=== PATIENT | female | born 1940 | race Caucasian/White ===

== ENCOUNTER 2018-01-16 10:50 | Day surgery (SDC) | payer OTHER ==
[~2018-01-16] VITALS: Ht 157.5 cm; Wt 70.8 kg
[~2018-01-16 10:50] MED LIST: ALBU90OI INH; ASPI81CH PO; ATORVASTATIN CA10 MG PO; ATORVASTATIN CA40 MG PO; CARV6.25 PO; CLOP75 PO; Carvedilol12.5 MG PO; DIAZ5 PO; DIGO.25 PO; DIGOXIN0.125 MG/2 PO; ELIQUIS2.5 MG PO; HYDR1TAB94 PO; LOVA40; OMEPRAZOLE MAGN20 MG PO; Propranolol HCl80 MG PO; Ventolin5 MG/1 ML NEB; Verapamil HCl180 M1 PO
[2018-01-17 04:00] LABS: BASOPHILS ABSOLUTE AUTO 0.03 K/mm3 (0.00-0.23); BASOPHILS PERCENT AUTO 1 % (0-2); EOSINOPHILS ABSOLUTE AUTO 0.13 K/mm3 (0.00-0.68); EOSINOPHILS PERCENT AUTO 2 % (0-6); Hemoglobin 9.9 g/dL (11.5-16.0); IMMATURE GRAN ABSOLUTE AUTO 0.02 K/mm3 (0.00-0.10); IMMATURE GRAN PERCENT AUTO 0 % (0-1); LYMPHOCYTES ABSOLUTE AUTO 1.64 K/mm3 (0.84-5.20); LYMPHOCYTES PERCENT AUTO 25 % (21-46); MONOCYTES PERCENT AUTO 9 % (4-13); Mean Corpuscular HGB 27.3 pg (26.0-34.0); Mean Corpuscular HGB Conc 30.9 g/dL (31.5-36.5); Mean Corpuscular Volume 88 fL (80-100); Mean Platelet Volume 10.7 fL (9.1-12.4); NEUTROPHILS ABSOLUTE AUTO 4.21 K/mm3 (1.96-9.15); NEUTROPHILS PERCENT AUTO 64 % (41-73); Platelet Count 152 K/mm3 (150-400); RDW Coefficient Variation 15.4 % (11.7-14.2); RDW Standard Deviation 50.6 fL (35.1-46.3); Red Blood Cell Count 3.63 M/mm3 (3.80-5.20); White Blood Cell Count 6.63 K/mm3 (4.00-11.30)
[2018-01-17 04:27] LABS: Bun/Creatinine Ratio 10.6 (12.0-20.0); Calcium, Blood 8.2 mg/dL (8.5-10.1); Creatinine, Blood 1.04 mg/dL (0.40-1.00); Magnesium, Blood 1.9 mg/dL (1.6-2.4); Potassium, Blood 3.9 mmol/L (3.5-5.5)
[2018-01-17] MEDS ORDERED: ELIQUIS5 MG PO (13:36)
[2018-01-17] MEDS ORDERED: Percocet 5-3251 EACH PO (14:57)
== END 2018-01-17 15:45 | disposition home or self-care (01) ==
LOC: PRE IP 10:50 → SURS 10:50 → ORSCMMR 10:50 → SURS 12:49 → PRE IP 15:00 → EDSTATUS 15:00 → ORSCMMR 01-17 15:45 → SURS 01-17 15:45
PROVIDERS: Orthopaedic Surgery
PROC: 0SRD0J9 Replacement of Left Knee Joint with Synthetic Substitute, Cemented, Open Approach (ICD-10-PCS; principal; 2018-01-16 15:00)
DX: M17.12 Unilateral primary osteoarthritis, left knee (principal); I10 Essential (primary) hypertension; I48.0 Paroxysmal atrial fibrillation; Z79.01 Long term (current) use of anticoagulants; Z79.82 Long term (current) use of aspirin; J44.9 Chronic obstructive pulmonary disease, unspecified; Z86.73 Personal history of transient ischemic attack (TIA), and cerebral infarction without residual deficits; Z79.899 Other long term (current) drug therapy; Z87.891 Personal history of nicotine dependence
CPT/HCPCS: 36415; 70450; 73560-LT; 80048; 83735; 85025; 86850; 86900; 86901; 88300; 94760; 97110; 97116; 97162; 97530; C1713; C1776; G8978; G8979; J0171; J0690; J0735; J1885; J2370; J2405; J2795; J3370; J7030; J7120; Q0163

== ENCOUNTER 2018-12-19 09:24 | Emergency (ER) | payer OTHER ==
[~2018-12-19] VITALS: Ht 160 cm; Wt 65.3 kg
[~2018-12-19 09:24] MED LIST changes: +ELIQUIS5 MG PO; +Percocet 5-3251 EACH PO
[2018-12-19 09:58] LABS: Source, Urine Catheter
[2018-12-19 10:02] LABS: Bilirubin, Urine Neg (Neg); Blood, Urine 1+ (Neg); Glucose Qualitative, Urine Neg (Neg); Ketones, Urine Neg (Neg); Leukocyte Esterase, Urine Neg (Neg); Nitrite, Urine Neg (Neg); Protein, Urine 1+ (Neg); Specific Gravity, Urine 1.015 (1.003-1.022); Urobilinogen, Urine 1+ (Normal); pH, Urine 6.5 (5.0-8.0)
[2018-12-19 10:14] LABS: Appearance, Urine Clear (Clear); Bacteria Not Seen /hpf; Color, Urine Yellow (P-Yellow); Red Blood Cells, Urine 0-2 /hpf (0-2); Squamous Epithelial Cells Rare /hpf (Few); White Blood Cells, Urine Not Seen /hpf (0-5)
[2018-12-19 10:19] LABS: BASOPHILS ABSOLUTE AUTO 0.03 K/mm3 (0.00-0.23); BASOPHILS PERCENT AUTO 1 % (0-2); EOSINOPHILS ABSOLUTE AUTO 0.09 K/mm3 (0.00-0.68); EOSINOPHILS PERCENT AUTO 2 % (0-6); Hematocrit 39.2 % (33.0-51.0); Hemoglobin 12.6 g/dL (11.5-16.0); IMMATURE GRAN ABSOLUTE AUTO 0.02 K/mm3 (0.00-0.10); IMMATURE GRAN PERCENT AUTO 0 % (0-1); LYMPHOCYTES ABSOLUTE AUTO 1.16 K/mm3 (0.84-5.20); LYMPHOCYTES PERCENT AUTO 24 % (21-46); MONOCYTES ABSOLUTE AUTO 0.44 K/mm3 (0.16-1.47); MONOCYTES PERCENT AUTO 9 % (4-13); Mean Corpuscular HGB Conc 32.1 g/dL (31.5-36.5); Mean Corpuscular Volume 90 fL (80-100); Mean Platelet Volume 10.7 fL (9.1-12.4); NEUTROPHILS ABSOLUTE AUTO 3.16 K/mm3 (1.96-9.15); NEUTROPHILS PERCENT AUTO 65 % (41-73); Platelet Count 191 K/mm3 (150-400); RDW Coefficient Variation 15.1 % (11.7-14.2); RDW Standard Deviation 50.2 fL (35.1-46.3); Red Blood Cell Count 4.34 M/mm3 (3.80-5.20)
[2018-12-19 10:46] LABS: Troponin I <0.015 ng/mL (0.000-0.040)
[2018-12-19 10:58] LABS: Alanine Aminotransfer (ALT/SGP 25 U/L (12-78); Albumin, Blood 3.6 g/dL (3.4-5.0); Albumin/Globulin Ratio 1.2 (0.8-1.8); Alk Phos 93 U/L (50-136); Anion Gap 7 mmol/L (6-16); Aspartate Aminotrans (AST/SGOT 19 U/L (12-37); Bilirubin, Total 0.9 mg/dL (0.1-1.0); Blood Urea Nitrogen 15 mg/dL (8-24); Bun/Creatinine Ratio 13.9 (12.0-20.0); CO2, Blood 30 mmol/L (21-32); Calcium, Blood 9.2 mg/dL (8.5-10.1); Chloride, Blood 108 mmol/L (98-108); Creatinine, Blood 1.08 mg/dL (0.40-1.00); Globulin, Blood 2.9 g/dL (2.2-4.0); Glomerular Filtration Rate 52 (60-); Glucose, Blood 114 mg/dL (70-99); Potassium, Blood 3.9 mmol/L (3.5-5.5); Sodium, Blood 145 mmol/L (136-145); Total Protein, Blood 6.5 g/dL (6.4-8.2)
== END 2018-12-19 13:04 | disposition home or self-care (01) ==
LOC: ER 09:24
PROVIDERS: Emergency Medicine
DX: R25.1 Tremor, unspecified (principal); Z91.041 Radiographic dye allergy status; Z88.2 Allergy status to sulfonamides; Z88.5 Allergy status to narcotic agent; Z79.899 Other long term (current) drug therapy; Z79.01 Long term (current) use of anticoagulants; Z86.73 Personal history of transient ischemic attack (TIA), and cerebral infarction without residual deficits
CPT/HCPCS: 71046; 80053; 81001; 84484; 85025; 93005; 93010; 99284-25; P9612

== ENCOUNTER 2019-08-21 12:47 | Emergency (ER) | payer OTHER ==
[~2019-08-21] VITALS: Ht 160 cm; Wt 69.4 kg
[2019-08-21 13:15] LABS: BASOPHILS ABSOLUTE AUTO 0.05 K/mm3 (0.00-0.23); BASOPHILS PERCENT AUTO 1 % (0-2); EOSINOPHILS ABSOLUTE AUTO 0.14 K/mm3 (0.00-0.68); EOSINOPHILS PERCENT AUTO 2 % (0-6); Hematocrit 43.9 % (33.0-51.0); Hemoglobin 14.3 g/dL (11.5-16.0); IMMATURE GRAN ABSOLUTE AUTO 0.05 K/mm3 (0.00-0.10); IMMATURE GRAN PERCENT AUTO 1 % (0-1); LYMPHOCYTES ABSOLUTE AUTO 1.58 K/mm3 (0.84-5.20); LYMPHOCYTES PERCENT AUTO 18 % (21-46); MONOCYTES ABSOLUTE AUTO 0.58 K/mm3 (0.16-1.47); MONOCYTES PERCENT AUTO 7 % (4-13); Mean Corpuscular HGB 29.8 pg (26.0-34.0); Mean Corpuscular HGB Conc 32.6 g/dL (31.5-36.5); Mean Corpuscular Volume 92 fL (80-100); Mean Platelet Volume 10.6 fL (9.1-12.4); NEUTROPHILS ABSOLUTE AUTO 6.29 K/mm3 (1.96-9.15); NEUTROPHILS PERCENT AUTO 72 % (41-73); Platelet Count 264 K/mm3 (150-400); RDW Coefficient Variation 14.1 % (11.7-14.2); RDW Standard Deviation 47.8 fL (35.1-46.3); White Blood Cell Count 8.69 K/mm3 (4.00-11.30)
[2019-08-21 13:32] LABS: Alanine Aminotransfer (ALT/SGP 37 U/L (12-78); Albumin, Blood 3.5 g/dL (3.4-5.0); Albumin/Globulin Ratio 0.9 (0.8-1.8); Alk Phos 105 U/L (50-136); Anion Gap 7 mmol/L (6-16); Aspartate Aminotrans (AST/SGOT 30 U/L (12-37); Bilirubin, Total 0.7 mg/dL (0.1-1.0); Blood Urea Nitrogen 15 mg/dL (8-24); Bun/Creatinine Ratio 13.9 (12.0-20.0); CO2, Blood 26 mmol/L (21-32); Calcium, Blood 9.3 mg/dL (8.5-10.1); Chloride, Blood 102 mmol/L (98-108); Creatinine, Blood 1.08 mg/dL (0.40-1.00); Globulin, Blood 3.7 g/dL (2.2-4.0); Glomerular Filtration Rate 52 (60-); Glucose, Blood 154 mg/dL (70-99); Potassium, Blood 3.9 mmol/L (3.5-5.5); Sodium, Blood 135 mmol/L (136-145); Total Protein, Blood 7.2 g/dL (6.4-8.2); Troponin I <0.015 ng/mL (0.000-0.040)
[2019-08-21 13:39] LABS: Digoxin (Lanoxin) 1.46 ug/mL (0.80-2.00)
== END 2019-08-21 16:31 | disposition home or self-care (01) ==
LOC: ER 12:47
PROVIDERS: Emergency Medicine
DX: R55 Syncope and collapse (principal); Z86.73 Personal history of transient ischemic attack (TIA), and cerebral infarction without residual deficits; Z87.891 Personal history of nicotine dependence; Z88.2 Allergy status to sulfonamides; Z91.041 Radiographic dye allergy status; Z88.5 Allergy status to narcotic agent; Z79.899 Other long term (current) drug therapy
CPT/HCPCS: 36415; 70450; 71046; 80053; 80162; 83880; 84484; 85025; 93005; 93010; 99285-25

== ENCOUNTER 2021-04-19 13:09 | Emergency (ER) | payer OTHER ==
[~2021-04-19] VITALS: Ht 160 cm; Wt 73.9 kg
[2021-04-19] MEDS ORDERED: IRBESARTAN300 M3 PO (14:06)
[2021-04-19] MEDS ORDERED: PROPRANOLOL HCL80 MG PO (14:06)
[2021-04-19] MEDS ORDERED: TRAM50 PO (14:07)
[2021-04-19 14:30] LABS: BASOPHILS ABSOLUTE AUTO 0.03 K/mm3 (0.00-0.23); BASOPHILS PERCENT AUTO 0 % (0-2); EOSINOPHILS ABSOLUTE AUTO 0.09 K/mm3 (0.00-0.68); EOSINOPHILS PERCENT AUTO 1 % (0-6); Hematocrit 38.6 % (33.0-51.0); Hemoglobin 12.5 g/dL (11.5-16.0); IMMATURE GRAN ABSOLUTE AUTO 0.07 K/mm3 (0.00-0.10); IMMATURE GRAN PERCENT AUTO 1 % (0-1); LYMPHOCYTES ABSOLUTE AUTO 1.01 K/mm3 (0.84-5.20); LYMPHOCYTES PERCENT AUTO 9 % (21-46); MONOCYTES ABSOLUTE AUTO 0.96 K/mm3 (0.16-1.47); MONOCYTES PERCENT AUTO 9 % (4-13); Mean Corpuscular HGB Conc 32.4 g/dL (31.5-36.5); Mean Corpuscular Volume 93 fL (80-100); Mean Platelet Volume 10.5 fL (9.1-12.4); NEUTROPHILS PERCENT AUTO 81 % (41-73); Platelet Count 203 K/mm3 (150-400); RDW Coefficient Variation 14.1 % (11.7-14.2); RDW Standard Deviation 48.3 fL (35.1-46.3); Red Blood Cell Count 4.16 M/mm3 (3.80-5.20); White Blood Cell Count 11.16 K/mm3 (4.00-11.30)
[2021-04-19 14:55] LABS: Albumin, Blood 3.1 g/dL (3.4-5.0); Albumin/Globulin Ratio 0.9 (0.8-1.8); Bilirubin, Total 0.9 mg/dL (0.1-1.0); Bun/Creatinine Ratio 16.7 (12.0-20.0); Calcium, Blood 9.2 mg/dL (8.5-10.1); Creatinine, Blood 1.02 mg/dL (0.40-1.00); Globulin, Blood 3.5 g/dL (2.2-4.0); Potassium, Blood 4.4 mmol/L (3.5-5.5); Total Protein, Blood 6.6 g/dL (6.4-8.2)
[2021-04-19 15:11] LABS: Source, Urine Clean Catch
[2021-04-19 15:28] LABS: Appearance, Urine Clear (Clear); Bilirubin, Urine Neg (Neg); Blood, Urine Neg (Neg); Color, Urine Yellow (P-Yellow); Glucose Qualitative, Urine Neg (Neg); Ketones, Urine Neg (Neg); Leukocyte Esterase, Urine 1+ (Neg); Nitrite, Urine Neg (Neg); Protein, Urine Neg (Neg); Urobilinogen, Urine NORM (Normal)
[2021-04-19 15:50] LABS: Bacteria Few /hpf; Red Blood Cells, Urine Not Seen /hpf (0-2); Squamous Epithelial Cells Rare /hpf (Few)
[2021-04-19] MEDS ORDERED: CIPR500 PO (16:27)
[2021-04-19] MEDS ORDERED: METR500 PO (16:27)
[2021-04-19] MEDS ORDERED: DOCU100 PO (16:29)
== END 2021-04-19 16:40 | disposition home or self-care (01) ==
LOC: ER 13:09
PROVIDERS: Student in an Organized Health Care Education/Training Program
DX: K57.32 Diverticulitis of large intestine without perforation or abscess without bleeding (principal); I10 Essential (primary) hypertension; Z79.01 Long term (current) use of anticoagulants; Z88.2 Allergy status to sulfonamides; Z88.5 Allergy status to narcotic agent; Z86.73 Personal history of transient ischemic attack (TIA), and cerebral infarction without residual deficits; Z79.899 Other long term (current) drug therapy; Z91.041 Radiographic dye allergy status; Z87.891 Personal history of nicotine dependence
CPT/HCPCS: 36415; 74176; 80053; 81001; 83605; 85025; 87086; 96374; 99284-25; A9270; J1885; J7030

== ENCOUNTER 2021-08-23 11:46 | Emergency (ER) | payer OTHER ==
[~2021-08-23] VITALS: Ht 160 cm; Wt 72.1 kg
[~2021-08-23 11:46] MED LIST changes: +CIPR500 PO; +DOCU100 PO; +IRBESARTAN300 M3 PO; +METR500 PO; +PROPRANOLOL HCL80 MG PO; +TRAM50 PO
[2021-08-23 12:28] LABS: BASOPHILS ABSOLUTE AUTO 0.02 K/mm3 (0.00-0.23); BASOPHILS PERCENT AUTO 0 % (0-2); EOSINOPHILS ABSOLUTE AUTO 0.05 K/mm3 (0.00-0.68); EOSINOPHILS PERCENT AUTO 1 % (0-6); Hemoglobin 13.4 g/dL (11.5-16.0); IMMATURE GRAN ABSOLUTE AUTO 0.07 K/mm3 (0.00-0.10); IMMATURE GRAN PERCENT AUTO 1 % (0-1); LYMPHOCYTES ABSOLUTE AUTO 1.15 K/mm3 (0.84-5.20); LYMPHOCYTES PERCENT AUTO 21 % (21-46); MONOCYTES ABSOLUTE AUTO 0.33 K/mm3 (0.16-1.47); MONOCYTES PERCENT AUTO 6 % (4-13); Mean Corpuscular HGB Conc 32.7 g/dL (31.5-36.5); Mean Corpuscular Volume 92 fL (80-100); Mean Platelet Volume 9.9 fL (9.1-12.4); NEUTROPHILS ABSOLUTE AUTO 3.77 K/mm3 (1.96-9.15); NEUTROPHILS PERCENT AUTO 70 % (41-73); Platelet Count 192 K/mm3 (150-400); RDW Standard Deviation 47.3 fL (35.1-46.3); Red Blood Cell Count 4.47 M/mm3 (3.80-5.20); White Blood Cell Count 5.39 K/mm3 (4.00-11.30)
[2021-08-23 12:53] LABS: Alanine Aminotransfer (ALT/SGP 21 U/L (12-78); Albumin, Blood 3.1 g/dL (3.4-5.0); Albumin/Globulin Ratio 0.9 (0.8-1.8); Alk Phos 57 U/L (50-136); Anion Gap 7 mmol/L (6-16); Aspartate Aminotrans (AST/SGOT 18 U/L (12-37); Bilirubin, Total 1.1 mg/dL (0.1-1.0); Blood Urea Nitrogen 20 mg/dL (8-24); Bun/Creatinine Ratio 18.2 (12.0-20.0); CO2, Blood 25 mmol/L (21-32); Calcium, Blood 9.9 mg/dL (8.5-10.1); Chloride, Blood 106 mmol/L (98-108); Globulin, Blood 3.5 g/dL (2.2-4.0); Glomerular Filtration Rate 48 (60-); Glucose, Blood 143 mg/dL (70-99); Potassium, Blood 3.7 mmol/L (3.5-5.5); Sodium, Blood 138 mmol/L (136-145); Total Protein, Blood 6.6 g/dL (6.4-8.2); Troponin I <0.015 ng/mL (0.000-0.040)
== END 2021-08-23 14:05 | disposition home or self-care (01) ==
LOC: ER 11:46
PROVIDERS: Emergency Medicine
DX: R55 Syncope and collapse (principal); I10 Essential (primary) hypertension; I48.91 Unspecified atrial fibrillation; Z86.73 Personal history of transient ischemic attack (TIA), and cerebral infarction without residual deficits
CPT/HCPCS: 80053; 84484; 85025; 93005; 93010; 99284-25

== ENCOUNTER → 2022-03-06 | Outpatient (CLI) | payer OTHER | END | disposition home or self-care (01) | LOC: LAB 12:08 → PLD 12:08 → LAB SHORT 12:08 | DX: D04.62 Carcinoma in situ of skin of left upper limb, including shoulder (principal); L57.0 Actinic keratosis | CPT/HCPCS: 88305 ==

== ENCOUNTER → 2022-05-22 | Outpatient (CLI) | payer OTHER ==
[2022-05-22 16:19] LABS: BASOPHILS ABSOLUTE AUTO 0.05 K/mm3 (0.00-0.23); BASOPHILS PERCENT AUTO 1 % (0-2); EOSINOPHILS ABSOLUTE AUTO 0.09 K/mm3 (0.00-0.68); EOSINOPHILS PERCENT AUTO 1 % (0-6); Hematocrit 39.7 % (33.0-51.0); Hemoglobin 12.9 g/dL (11.5-16.0); IMMATURE GRAN ABSOLUTE AUTO 0.04 K/mm3 (0.00-0.10); IMMATURE GRAN PERCENT AUTO 1 % (0-1); LYMPHOCYTES ABSOLUTE AUTO 1.31 K/mm3 (0.84-5.20); LYMPHOCYTES PERCENT AUTO 18 % (21-46); MONOCYTES ABSOLUTE AUTO 0.61 K/mm3 (0.16-1.47); MONOCYTES PERCENT AUTO 8 % (4-13); Mean Corpuscular HGB 29.7 pg (26.0-34.0); Mean Corpuscular HGB Conc 32.5 g/dL (31.5-36.5); Mean Corpuscular Volume 92 fL (80-100); Mean Platelet Volume 11.2 fL (9.1-12.4); NEUTROPHILS ABSOLUTE AUTO 5.15 K/mm3 (1.96-9.15); NEUTROPHILS PERCENT AUTO 71 % (41-73); Platelet Count 235 K/mm3 (150-400); RDW Coefficient Variation 14.1 % (11.7-14.2); RDW Standard Deviation 47.4 fL (35.1-46.3); Red Blood Cell Count 4.34 M/mm3 (3.80-5.20); White Blood Cell Count 7.25 K/mm3 (4.00-11.30)
[2022-05-22 20:41] LABS: Albumin, Blood 3.2 g/dL (3.4-5.0); Albumin/Globulin Ratio 0.9 (0.8-1.8); Alk Phos 72 U/L (50-136); Anion Gap 3 mmol/L (6-16); Aspartate Aminotrans (AST/SGOT 18 U/L (12-37); Bilirubin, Total 0.6 mg/dL (0.1-1.0); Blood Urea Nitrogen 23 mg/dL (8-24); Bun/Creatinine Ratio 22.1 (12.0-20.0); CHOL/HDL RATIO 3.2; CO2, Blood 29 mmol/L (21-32); Calcium, Blood 9.6 mg/dL (8.5-10.1); Chloride, Blood 107 mmol/L (98-108); Cholesterol 260 mg/dL (50-200); Creatinine, Blood 1.04 mg/dL (0.40-1.00); Globulin, Blood 3.4 g/dL (2.2-4.0); Glomerular Filtration Rate 54 (60-); Glucose, Blood 108 mg/dL (70-99); HDL Cholesterol 80 mg/dL (>39); LDL/HDL RATIO 1.9; Low Density Lipoprotein Chol 155 mg/dL (0-110); Potassium, Blood 3.7 mmol/L (3.5-5.5); Sodium, Blood 139 mmol/L (136-145); Thyroxine (T4) 8.5 ug/dL (4.8-13.9); Total Protein, Blood 6.6 g/dL (6.4-8.2); Triglycerides 123 mg/dL (30-160); Very Low Density Lipoprot Chol 24 mg/dL (6-32)
[2022-05-22 20:46] LABS: Alanine Aminotransfer (ALT/SGP 24 U/L (12-78)
== END | disposition home or self-care (01) ==
LOC: LAB SHORT 12:15 → LAB 12:15
PROVIDERS: Family Medicine
DX: I10 Essential (primary) hypertension (principal)
CPT/HCPCS: 80053; 80061; 84436; 84443; 85025

== ENCOUNTER → 2023-01-01 | Outpatient (CLI) | payer OTHER ==
[2023-01-01 13:41] LABS: BASOPHILS ABSOLUTE AUTO 0.03 K/mm3 (0.00-0.23); BASOPHILS PERCENT AUTO 1 % (0-2); EOSINOPHILS ABSOLUTE AUTO 0.08 K/mm3 (0.00-0.68); EOSINOPHILS PERCENT AUTO 1 % (0-6); Hematocrit 33.8 % (33.0-51.0); IMMATURE GRAN ABSOLUTE AUTO 0.03 K/mm3 (0.00-0.10); IMMATURE GRAN PERCENT AUTO 1 % (0-1); LYMPHOCYTES ABSOLUTE AUTO 1.09 K/mm3 (0.84-5.20); LYMPHOCYTES PERCENT AUTO 17 % (21-46); MONOCYTES ABSOLUTE AUTO 0.64 K/mm3 (0.16-1.47); MONOCYTES PERCENT AUTO 10 % (4-13); Mean Corpuscular HGB 28.2 pg (26.0-34.0); Mean Corpuscular HGB Conc 32.5 g/dL (31.5-36.5); Mean Corpuscular Volume 87 fL (80-100); Mean Platelet Volume 10.9 fL (9.1-12.4); NEUTROPHILS ABSOLUTE AUTO 4.75 K/mm3 (1.96-9.15); NEUTROPHILS PERCENT AUTO 72 % (41-73); Platelet Count 204 K/mm3 (150-400); RDW Coefficient Variation 15.9 % (11.7-14.2); RDW Standard Deviation 49.2 fL (35.1-46.3); White Blood Cell Count 6.62 K/mm3 (4.00-11.30)
[2023-01-02 03:00] LABS: Albumin, Blood 3.1 g/dL (3.4-5.0); Albumin/Globulin Ratio 0.9 (0.8-1.8); Bilirubin, Total 1.1 mg/dL (0.1-1.0); Bun/Creatinine Ratio 15.4 (12.0-20.0); Calcium, Blood 9.5 mg/dL (8.5-10.1); Creatinine, Blood 1.17 mg/dL (0.40-1.00); Globulin, Blood 3.6 g/dL (2.2-4.0); Potassium, Blood 4.1 mmol/L (3.5-5.5); Total Protein, Blood 6.7 g/dL (6.4-8.2)
== END | disposition home or self-care (01) ==
LOC: LAB 13:03 → LAB SHORT 13:03
PROVIDERS: Physician Assistant
DX: I10 Essential (primary) hypertension (principal)
CPT/HCPCS: 80053; 85025

== ENCOUNTER → 2025-07-07 | Outpatient (CLI) | payer OTHER ==
[2025-07-07 18:43] LABS: BASOPHILS ABSOLUTE AUTO 0.02 K/mm3 (0.00-0.23); BASOPHILS PERCENT AUTO 0 % (0-2); EOSINOPHILS ABSOLUTE AUTO 0.16 K/mm3 (0.00-0.68); EOSINOPHILS PERCENT AUTO 3 % (0-6); Hematocrit 34.7 % (33.0-51.0); Hemoglobin 11.4 g/dL (11.5-16.0); IMMATURE GRAN ABSOLUTE AUTO 0.01 K/mm3 (0.00-0.10); IMMATURE GRAN PERCENT AUTO 0 % (0-1); LYMPHOCYTES ABSOLUTE AUTO 1.34 K/mm3 (0.84-5.20); LYMPHOCYTES PERCENT AUTO 28 % (21-46); MONOCYTES ABSOLUTE AUTO 0.47 K/mm3 (0.16-1.47); MONOCYTES PERCENT AUTO 10 % (4-13); Mean Corpuscular HGB Conc 32.9 g/dL (31.5-36.5); Mean Corpuscular Volume 89 fL (80-100); NEUTROPHILS ABSOLUTE AUTO 2.87 K/mm3 (1.96-9.15); NEUTROPHILS PERCENT AUTO 59 % (41-73); NRBC ABSOLUTE 0.00 K/mm3 (0.00-0.02); NRBC Auto 0.0 /100 WBC (0.0-0.2); Platelet Count 215 K/mm3 (150-400); RDW Coefficient Variation 14.8 % (11.7-14.2); RDW Standard Deviation 47.9 fL (35.1-46.3)
[2025-07-07 19:03] LABS: Alanine Aminotransfer (ALT/SGP 22.0 U/L (12-78); Albumin, Blood 3.3 g/dL (3.4-5.0); Albumin/Globulin Ratio 0.9 (0.8-1.8); Anion Gap 3.0 mmol/L (3-11); Aspartate Aminotrans (AST/SGOT 19.0 U/L (12-37); Bilirubin, Total 0.7 mg/dL (0.1-1.0); Blood Urea Nitrogen 15.0 mg/dL (8-24); CO2, Blood 27.0 mmol/L (21-32); Calcium, Blood 9.3 mg/dL (8.5-10.1); Chloride, Blood 109.0 mmol/L (98-108); Creatinine, Blood 1.1 mg/dL (0.40-1.00); Globulin, Blood 3.6 g/dL (2.2-4.0); Glucose, Blood 110.0 mg/dL (70-99); Potassium, Blood 3.7 mmol/L (3.5-5.5); Sodium, Blood 135.0 mmol/L (136-145); Total Protein, Blood 6.9 g/dL (6.4-8.2)
== END ==
LOC: LAB SHORT 16:01 → LAB 16:01
PROVIDERS: Nurse Practitioner Family
DX: R10.9 Unspecified abdominal pain (principal)
CPT/HCPCS: 80053; 85025

== ENCOUNTER 2025-08-11 16:45 | Inpatient (IN) | payer OTHER ==
[~2025-08-11] VITALS: Ht 160 cm; Wt 81.0 kg
[~2025-08-11 16:45] MED LIST changes: +ALBU2.5V5 INH; +Amlodipine Bes2.5 MG PO; +BREZTRI AEROS10.7 GM INH; +BUDESONIDE1 MG/2 M5 INH; +FORMOTEROL20 MCG/2 M INH; +OMEP20ER PO; -OMEPRAZOLE MAGN20 MG PO; -Ventolin5 MG/1 ML NEB
[2025-08-12 13:24] VITALS: BP 185/105
[2025-08-12] MEDS ORDERED: FLU VACC TS2025(65UP)/MF59C/PF 45 MCG/0.5 ML SYRINGE IM SCH (14:20)
[2025-08-12] MEDS ORDERED: Ondansetron HCl 2 MG / ML 2ML Vial IV PRN ×2 (14:20→14:30)
[2025-08-12] MEDS ORDERED: Albuterol 2.5 MG/3 ML VIAL INH PRN ×2 (14:25→14:30)
[2025-08-12] MEDS ORDERED: Misc. Inhaler INH SCH (14:30)
[2025-08-12] MEDS ORDERED: Albuterol HFA200 ACT/6.7 GM INH INH PRN (14:30)
--- NOTE | 2025-08-12 14:40 | NUR ---
ARRIVAL TO 210 PT ARRIVED TO HER ROOM A DIRECT ADMIT, PROVIDED HER WITH A GOWN TO CHANGE INTO, DICUSSED MEDICAL HISTORY AND PERFORMED HEAD TO TOE ASSESSMENT. DISCUSSED PLAN OF CARE WITH HER INCLUDING BOWEL PREP LATER TODAY AND HER PROCEDURE TOMORROW. SHE EXPRESSED A PREFERENCE FOR SUPREP FOR HER BOWEL PREP WHICH WAS RELAYED TO ADMITTING MD. PT RESTING COMFORTABLY IN HER BED AT THIS TIME, CALL LIGHT IN REACH.
[2025-08-12 17:14] VITALS: BP 187/100
[2025-08-12 19:40] VITALS: BP 161/89
[2025-08-12 20:40] VITALS: BP 168/80
[2025-08-12 22:27] VITALS: BP 150/92
[2025-08-13] VITALS (10 sets, daily range): BP systolic 108–181; BP diastolic 70–97
[2025-08-13 03:58] LABS: Hematocrit 34.2 % (33.0-51.0); Hemoglobin 11.4 g/dL (11.5-16.0); Mean Corpuscular HGB Conc 33.3 g/dL (31.5-36.5); Mean Corpuscular Volume 84 fL (80-100); NRBC ABSOLUTE 0.00 K/mm3 (0.00-0.02); NRBC Auto 0.0 /100 WBC (0.0-0.2); Platelet Count 202 K/mm3 (150-400); RDW Coefficient Variation 14.5 % (11.7-14.2); RDW Standard Deviation 44.3 fL (35.1-46.3)
[2025-08-13 04:39] LABS: Anion Gap 10.0 mmol/L (3-11); Blood Urea Nitrogen 18.0 mg/dL (8-24); CO2, Blood 24.0 mmol/L (21-32); Calcium, Blood 9.4 mg/dL (8.5-10.1); Chloride, Blood 109.0 mmol/L (98-108); Creatinine, Blood 1.01 mg/dL (0.40-1.00); Glucose, Blood 104.0 mg/dL (70-99); Magnesium, Blood 2.2 mg/dL (1.6-2.4); Potassium, Blood 3.7 mmol/L (3.5-5.5); Sodium, Blood 139.0 mmol/L (136-145)
[2025-08-13] MEDS ORDERED: Peg/Electrolytes 4,000 ML BTL PO ONE (06:00)
--- NOTE | 2025-08-13 06:43 | NUR ---
SHIFT SUMMARY NOC. PT ADMIT FOR SIGMOID STRICTURE. PT DID NOT TOLERATE SUREPREP AT END OF DAY SHIFT. SWITCHED TO GOLYTELY, STARTED THIS AM. PT'S STOOLS STILL NOT CLEAR. PT REPORTED ABD CRAMPING LAST NIGHT AND MEDICATED FOR PAIN. PT VERBALIZED IMPROVEMENT. PT MAKES NEEDS KNOWN AND CALLS APPROPRIATELY.
--- NOTE | 2025-08-13 13:37 | NUR ---
PATIENT OFF UNIT VIA [facility] FOR COLONOSCOPY
--- NOTE | 2025-08-13 13:47 | NUR ---
PT HAS 22G IV TO LEFT FOREARM THAT FLUSHES WELL AND FLOWS TO GRAVITY.
--- NOTE | 2025-08-13 13:49 | NUR ---
08/13/25 1349 [place] Wright History, Chart, Medications and Allergies reviewed before start of procedure.MONITOR INTACT WITH CONTINUOUS PULSE OXIMETRY, CONTINUOUS END TITAL CO2, 3-LEAD EKG AND INTERMITTENT BLOOD PRESSURE.O2 VIA POM INTACT THROUGHOUT SEDATION/PROCEDURE.See Anesthesia record.
--- NOTE | 2025-08-13 13:52 | NUR ---
Pt brought from Surgical Floor to Day Surgery for procedure with Dr. Lombardo. History, Chart, Medications and Allergies reviewed before start of procedure. Patient confirms NPO status and agrees with scheduled surgery. Pre-Op teaching done. Pt verbalizes understanding. Pt belongings left in personal room 210 for safekeeping.
--- NOTE | 2025-08-13 15:15 | NUR ---
RETURN TO UNIT S/P COLONOSCOPY W/ POLYP REMOVAL. PATIENT DROWSY - EASY AROUSABLE W/ VERBAL STIMULI BEFORE FALLING BACK TO SLEEP. VSS. ON ROOM AIR - SATs >90%. DENIES N/V - IVF INFUSING PER EMAR. CLEAR LIQUID DIET. PATIENT TO BE NPO AT MIDNIGHT. CALL LIGHT IN REACH.
--- NOTE | 2025-08-13 16:52 | NUR ---
SHIFT SUMMARY NO ACUTE CHANGES SINCE PREVIOUS DOCUMENTATION. PATIENT ALERT AND ORIENTED X4. COMMUNICATING NEEDS EFFECTIVELY. VSS. S/P COLONOSCOPY W/ POLYP RMVAL. TOLERATING CLEAR LIQUID DIET. IVF INFUSING PER EMAR TO PIV LFA. NPO 08/14 AT 0900 FOR SIGMOID COLECTOMY. PREOP ECHO TO BE COMPLETED. AMBULATING W/ SBA TO BSC. VOIDING. MULTIPLE BMs T/O DAY. CALL LIGHT IN REACH.
[2025-08-14] VITALS (23 sets, daily range): BP systolic 124–178; BP diastolic 65–108
--- NOTE | 2025-08-14 04:41 | NUR ---
SHIFT SUMMARY NOC. PT ADMIT FOR SIGMOID STRICTURE. PT DENIES ABD PAIN/CRAMPING THIS SHIFT. PT TOLERATING CLEAR LIQUID DIET AND PLAN TO BE NPO AT 0900 FOR PLANNED PROCEDURE. PT VOIDING URINE VIA BSC. NO ACUTE EVENTS THIS SHIFT. PT MAKES NEEDS KNOWN, CALL LIGHT IN REACH.
[2025-08-14] MEDS ORDERED: Heparin Sodium,Porcine 5,000 UNIT/0.5 ML SDV SC ONE (08:00)
--- NOTE | 2025-08-14 09:37 | NUR ---
AFIB ECHOCARDIOGRAM COMPLETED THIS MORNING. KRAFT MILL OPERATOR NOTIFIED THIS RN OF POSSIBLE AFIB. PATIENT W/ KNOWN HX OF AFIB - ASYMPTOMATIC, DENIES CHEST PAIN PRESSURE, VSS. MD OAKLEY NOTIFIED - RCVD ORDER TO PERFORM EKG. EKG COMPLETED - SHOWING AFIB 70s-80s. MD OAKLEY NOTIFIED - NO NEW ORDERS RCVD. PRIMARY RN NOTIFIED.
--- NOTE | 2025-08-14 10:34 | NUR ---
PATIENT OFF UNIT FOR PROCEDURE VIA WC
[2025-08-14] MEDS ORDERED: FentaNYL Citrate 50 MCG/ML 2 ML Injection ONE ×3 (11:33→17:01)
[2025-08-14] MEDS ORDERED: Dexamethasone Sod Phos 10 MG/ML 1ML VIAL ONE (11:33)
[2025-08-14] MEDS ORDERED: Ondansetron HCl 2 MG / ML 2ML Vial ONE (11:33)
[2025-08-14] MEDS ORDERED: Rocuronium Bromide 10 MG/ML 5ML Injection IV ONE ×2 (11:33→14:11)
[2025-08-14] MEDS ORDERED: Phenylephrine HCl 100 MCG/ML-NS 10MLSYR (1MG/10ML) ONE (11:33)
[2025-08-14] MEDS ORDERED: Bupivacaine 0.5% W/EPI 1:200000 SDV 30 ML Vial ONE (11:59)
[2025-08-14] MEDS ORDERED: CeFAZolin Sodium 2,000 MG in NS 100 ML IV SCH (12:15)
[2025-08-14] MEDS ORDERED: MetroNIDAZOLE 500MG/NS 100 ml 100 ML IV SCH (12:15)
[2025-08-14] MEDS ORDERED: Etomidate 2MG / ML 10ML Vial ONE (12:32)
[2025-08-14] MEDS ORDERED: Albuterol HFA200 ACT/6.7 GM INH ONE (14:11)
[2025-08-14] MEDS ORDERED: ePHEDrine Sulfate 50 MG/ML 1ML Injection IV PRN (14:45)
[2025-08-14] MEDS ORDERED: Metoclopramide HCl 5MG / ML 2ML Vial IV PRN (14:45)
[2025-08-14] MEDS ORDERED: HydrALAZINE HCl 20 MG / ML 1ML Vial IV PRN (14:45)
[2025-08-14] MEDS ORDERED: FentaNYL Citrate 50 MCG/ML 2 ML Injection IV PRN ×2 (14:45)
[2025-08-14] MEDS ORDERED: Albuterol 2.5 MG/3 ML VIAL INH PRN (14:50)
[2025-08-14] MEDS ORDERED: Ondansetron HCl 2 MG / ML 2ML Vial IV PRN (14:50)
[2025-08-14] MEDS ORDERED: Sugammadex Sodium 200 MG/2ML SDV (100 MG/ML) ONE ×2 (15:59→16:24)
[2025-08-14] MEDS ORDERED: HYDROmorphone HCl/Pf 1MG SYR IV PRN (16:35)
[2025-08-14] MEDS ORDERED: HYDROmorphone HCl/Pf 1MG SYR ONE (17:33)
--- NOTE | 2025-08-14 18:23 | NUR ---
ARRIVAL TO SURG FLOOR TO FLOOR VIA GURNEY. A&O x4, VSS. SBP IN 160'S, HX OF HTN, HOME REGIMEN ORDERED TONIGHT. ON TELE - A-FIB 70-80'S. PT DENIES CX PAIN/PRESSURE AT THIS TIME. CURRENTLY ON 2L O2 NC w/SATS >93%. LAP SITES x5, C/D/I. STATES NO PAIN AT THIS TIME. DEL [place]ST[place]O CATH IN PLACE, DRAINING CLEAR YELLOW URINE AT THIS TIME. SNACKS & DRINKS GIVEN. CURRENTLY RESTING IN BED w/CALL LIGHT WITHIN REACH.
[2025-08-15 04:06] VITALS: BP 148/80
--- NOTE | 2025-08-15 04:23 | NUR ---
SHIFT SUMMARY NO ACUTE EVENTS OVERNIGHT. PT POD#1 SIGMOID COLECTOMY; DEL [place]ST[place]O CATHETER TO BE REMOVED TODAY. PT WAS CONFUSED AT BEGINNING OF SHIFT HOWEVER THAT APPEARS TO HAVE BEEN RESOLVED THROUGHOUT SHIFT. PT TOLERATING PO INTAKE OF THIS NOTE.
[2025-08-15 07:15] VITALS: BP 144/67
[2025-08-15] MEDS ORDERED: Enoxaparin 40 MG/0.4 ML SYR SC SCH (09:00)
[2025-08-15 12:24] VITALS: BP 151/77
[2025-08-15 15:43] VITALS: BP 137/75
--- NOTE | 2025-08-15 17:11 | NUR ---
SHIFT SUMMARY PT SITTING UP IN CHAIR. WORKED SUCCESSFULLY WITH PT TODAY. DENIES COMPLAINTS. TAKING TRAMADOL PRN FOR PAIN. WILL CONTINUE TO MONITOR.
[2025-08-15 20:40] VITALS: BP 153/83
[2025-08-16] VITALS (7 sets, daily range): BP systolic 153–169; BP diastolic 75–103
--- NOTE | 2025-08-16 04:47 | NUR ---
SHIFT SUMMARY NO ACUTE EVENTS OVERNIGHT. PT WITH INTERMITTENT PAIN DURING SHIFT; MEDICATED PER EMAR. PT UP TO COMMODE MULTIPLE TIMES DURING SHIFT WITH GOOD URINE OUTPUT. PT TOLERATING PO INTAKE. PT ABLE TO MAKE NEEDS KNOWN AND EAGER TO WORK WITH THERAPY IN HOPES TO DISCHARGE HOME IF POSSIBLE.
[2025-08-16] MEDS ORDERED: Formoterol/Mometasone MDI 5/200 mcg 13 GM INH SCH (10:00)
[2025-08-16] MEDS ORDERED: Tiotropium Bromide 2.5 MCG/ACT MIST INHAL (10 ACT/4 GM) INH SCH (10:00)
--- NOTE | 2025-08-16 20:50 | NUR ---
RN TO ROOM TO ASSESS PT NAUSEA; PT REPORTS STILL HAVING INTERMITTENT NAUSEA AND WOULD LIKE TO WAIT A WHILE LONGER BEFORE TAKING NOC MEDS. RN PROVIDED PT WITH MINT TEA.
--- NOTE | 2025-08-17 00:56 | NUR ---
URINE OUTPUT DURING CHART REVIEW, THIS RN NOTED PT HAD NO URINE OUTPUT NOTED SINCE MORNING OF 08/16/25; PT REPORTS NO FEELING OF NEED TO VOID. CARDIAC SONOGRAPHER PERFORMED BLADDER SCAN WITH BLADDER VOLUME OF 63mL. CHARGE NURSE NOTIFIED. PT ENCOURAGED TO DRINK MORE FLUIDS. RN RESCANNED BLADDER AND RESULTS WERE 90mL. PT HAS LOW TRANSVERSE INCISION AND HAS SOME PRESSURE WITH PALPATION NEAR THE AREA. PT REQUESTS TO WALK AROUND AND ATTEMPT TO PASS GAS.
[2025-08-17 04:27] LABS: BASOPHILS ABSOLUTE AUTO 0.02 K/mm3 (0.00-0.23); BASOPHILS PERCENT AUTO 0 % (0-2); EOSINOPHILS ABSOLUTE AUTO 0.02 K/mm3 (0.00-0.68); EOSINOPHILS PERCENT AUTO 0 % (0-6); Hematocrit 39.7 % (33.0-51.0); Hemoglobin 13.2 g/dL (11.5-16.0); IMMATURE GRAN ABSOLUTE AUTO 0.02 K/mm3 (0.00-0.10); IMMATURE GRAN PERCENT AUTO 0 % (0-1); LYMPHOCYTES ABSOLUTE AUTO 1.14 K/mm3 (0.84-5.20); LYMPHOCYTES PERCENT AUTO 12 % (21-46); MONOCYTES ABSOLUTE AUTO 0.83 K/mm3 (0.16-1.47); MONOCYTES PERCENT AUTO 9 % (4-13); Mean Corpuscular HGB Conc 33.2 g/dL (31.5-36.5); Mean Corpuscular Volume 85 fL (80-100); NEUTROPHILS ABSOLUTE AUTO 7.23 K/mm3 (1.96-9.15); NEUTROPHILS PERCENT AUTO 78 % (41-73); NRBC ABSOLUTE 0.00 K/mm3 (0.00-0.02); NRBC Auto 0.0 /100 WBC (0.0-0.2); Platelet Count 236 K/mm3 (150-400); RDW Coefficient Variation 14.5 % (11.7-14.2); RDW Standard Deviation 44.5 fL (35.1-46.3)
[2025-08-17 04:41] VITALS: BP 165/95
[2025-08-17 04:49] LABS: Albumin, Blood 3.1 g/dL (3.4-5.0); Anion Gap 10 mmol/L (3-11); Blood Urea Nitrogen 18 mg/dL (8-24); CO2, Blood 24 mmol/L (21-32); Calcium, Blood 9.0 mg/dL (8.5-10.1); Chloride, Blood 102 mmol/L (98-108); Creatinine, Blood 0.85 mg/dL (0.40-1.00); Glucose, Blood 101 mg/dL (70-99); Magnesium, Blood 2.1 mg/dL (1.6-2.4); Phosphorus, Blood 2.2 mg/dL (2.5-4.9); Potassium, Blood 3.7 mmol/L (3.5-5.5); Sodium, Blood 132 mmol/L (136-145)
--- NOTE | 2025-08-17 05:47 | NUR ---
SHIFT SUMMARY PT CONTINUES TO HAVE INTERMITTENT NAUSEA T/O SHIFT. PT AMBULATED IN HALLWAY AND VOIDED AFTER AMBULATION (SEE PREVIOUS NOTE). PT REQUESTED IV PAIN MEDICATION AFTER NAUSEA EPISODE; WHEN RN RETURNED TO ADMINISTER MEDICATION, PT DECLINES SHE STATES SHE IS FEELING BETTER AT THAT TIME.
[2025-08-17] MEDS ORDERED: Prochlorperazine Edisylate 10 mg Vial IV PRN (07:15)
[2025-08-17 07:21] VITALS: BP 188/123
[2025-08-17] MEDS ORDERED: Enoxaparin 80 MG/0.8 ML SYR SC SCH (09:00)
[2025-08-17] MEDS ORDERED: Enoxaparin 100 MG/ML 1ML SYR SC SCH (09:00)
[2025-08-17 15:31] VITALS: BP 132/78
[2025-08-17 19:37] VITALS: BP 161/94
[2025-08-17 23:49] VITALS: BP 121/77
[2025-08-18 04:01] VITALS: BP 119/79
[2025-08-18 04:32] LABS: BASOPHILS ABSOLUTE AUTO 0.02 K/mm3 (0.00-0.23); BASOPHILS PERCENT AUTO 0 % (0-2); EOSINOPHILS ABSOLUTE AUTO 0.05 K/mm3 (0.00-0.68); EOSINOPHILS PERCENT AUTO 1 % (0-6); Hematocrit 35.6 % (33.0-51.0); Hemoglobin 11.8 g/dL (11.5-16.0); IMMATURE GRAN ABSOLUTE AUTO 0.02 K/mm3 (0.00-0.10); IMMATURE GRAN PERCENT AUTO 0 % (0-1); LYMPHOCYTES ABSOLUTE AUTO 1.20 K/mm3 (0.84-5.20); LYMPHOCYTES PERCENT AUTO 18 % (21-46); MONOCYTES ABSOLUTE AUTO 0.68 K/mm3 (0.16-1.47); MONOCYTES PERCENT AUTO 10 % (4-13); Mean Corpuscular HGB Conc 33.1 g/dL (31.5-36.5); Mean Corpuscular Volume 84 fL (80-100); NEUTROPHILS ABSOLUTE AUTO 4.57 K/mm3 (1.96-9.15); NEUTROPHILS PERCENT AUTO 70 % (41-73); NRBC ABSOLUTE 0.00 K/mm3 (0.00-0.02); NRBC Auto 0.0 /100 WBC (0.0-0.2); Platelet Count 222 K/mm3 (150-400); RDW Coefficient Variation 14.4 % (11.7-14.2); RDW Standard Deviation 44.2 fL (35.1-46.3)
[2025-08-18 04:53] LABS: Albumin, Blood 2.7 g/dL (3.4-5.0); Anion Gap 10 mmol/L (3-11); Blood Urea Nitrogen 17 mg/dL (8-24); CO2, Blood 26 mmol/L (21-32); Calcium, Blood 8.8 mg/dL (8.5-10.1); Chloride, Blood 103 mmol/L (98-108); Creatinine, Blood 1.04 mg/dL (0.40-1.00); Glucose, Blood 99 mg/dL (70-99); Phosphorus, Blood 3.1 mg/dL (2.5-4.9); Potassium, Blood 3.1 mmol/L (3.5-5.5); Sodium, Blood 136 mmol/L (136-145)
--- NOTE | 2025-08-18 05:12 | NUR ---
SHIFT SUMMARY POD 4 SIGMOID COLECTOMY. A&O X4. LAP SITES X4 C/D/I. PAIN MANAGED WELL PER EMAR. PT DENIES N&V. PT REPORTS PASSING FLATUS. BM X1 UTILIZING BEDSIDE COMMODE THIS SHIFT. PT RESTING IN BED, RESPIRATIONS EVEN AND UNLABORED. CALL LIGHT WITHIN REACH.
[2025-08-18 07:25] VITALS: BP 118/79
[2025-08-18 11:50] VITALS: BP 119/68
[2025-08-18 14:46] VITALS: BP 137/80
[2025-08-18 19:14] VITALS: BP 143/76
[2025-08-19 00:09] VITALS: BP 150/79
[2025-08-19 03:50] VITALS: BP 154/55
--- NOTE | 2025-08-19 04:46 | NUR ---
SHIFT SUMMARY NO ACUTE CHANGES THIS SHIFT. LAP SITES X4 C/D/I. PT DENIES N&V. PT TOLERATING PO INTAKE. PT UP TO BATHROOM WITH 1 PERSON ASSISTANCE, GAIT BELT, AND FWW. PT RESTING IN BED, RESPIRATIONS EVEN AND UNLABORED. CALL LIGHT WITHIN REACH.
[2025-08-19 07:22] VITALS: BP 137/75
[2025-08-19 13:35] VITALS: BP 145/70
--- NOTE | 2025-08-19 16:01 | NUR ---
SHIFT SUMMARY POD 5 SIGMOID COLECTOMY. A&O x4, VSS. ON TELE - A-FLUTTER IN 90'S PER GURVINDER SIEVE GRADER TENDER. LAP SITES x4, C/D/I. TOLERATING REGULAR DIET WELL. STATES PASSING GAS & BM. NO TENDERNESS. WORKED w/THERAPY TODAY, AMBULATED IN HALLWAY & ROOM w/WALKER. STATES DIFFICULTY AMBULATING FROM ROOM TO BATHROOM AT HOME, SCRIPT FOR BEDSIDE COMMONDE IN CHART. VOIDING. STATES NO PAIN THIS SHIFT. PLAN TO DC TOMORROW w/HH. CURRENTLY RESTING IN BED w/CALL LIGHT WITHIN REACH.
[2025-08-19 19:00] VITALS: BP 137/77
[2025-08-19 23:58] VITALS: BP 161/78
[2025-08-20 03:49] LABS: Hematocrit 34.0 % (33.0-51.0); Hemoglobin 11.3 g/dL (11.5-16.0); Mean Corpuscular HGB Conc 33.2 g/dL (31.5-36.5); Mean Corpuscular Volume 85 fL (80-100); NRBC ABSOLUTE 0.00 K/mm3 (0.00-0.02); NRBC Auto 0.0 /100 WBC (0.0-0.2); Platelet Count 218 K/mm3 (150-400); RDW Coefficient Variation 14.4 % (11.7-14.2); RDW Standard Deviation 44.6 fL (35.1-46.3)
[2025-08-20 04:11] LABS: Albumin, Blood 2.9 g/dL (3.4-5.0); Anion Gap 8 mmol/L (3-11); Blood Urea Nitrogen 13 mg/dL (8-24); CO2, Blood 27 mmol/L (21-32); Calcium, Blood 9.0 mg/dL (8.5-10.1); Chloride, Blood 105 mmol/L (98-108); Creatinine, Blood 0.87 mg/dL (0.40-1.00); Glucose, Blood 105 mg/dL (70-99); Magnesium, Blood 1.9 mg/dL (1.6-2.4); Phosphorus, Blood 2.5 mg/dL (2.5-4.9); Potassium, Blood 3.6 mmol/L (3.5-5.5); Sodium, Blood 136 mmol/L (136-145)
[2025-08-20 04:47] VITALS: BP 161/86
--- NOTE | 2025-08-20 04:48 | NUR ---
SHIFT SUMMARY POD 6 SIGMOID COLECTOMY. NO ACUTE CHANGES THIS SHIFT. PT DENIES PAIN. VSS. A&O X4. LAP SITES X5 C/D/I. PT TOLERATING PO INTAKE, DENIES N&V. PT AMBULATING TO BATHROOM UTILIZING FWW. PT REPORTED PASSING FLATUS AND BM. PLAN TO DISCHARGE HOME W/ HOME HEALTH TODAY. PT RESTING IN BED, RESPIRATIONS EVEN AND UNLABORED. CALL LIGHT WITHIN REACH.
[2025-08-20 07:09] VITALS: BP 167/79
--- NOTE | 2025-08-20 10:24 | NUR ---
DC INSTRUCT REVIEWED. STATED UNDERSTANDING. AWAITING RIDE FOR DISCHARGE.
== END 2025-08-20 10:58 | disposition home health service (06) | DRG 333 ==
LOC: SURS 16:45
PROVIDERS: ADMIT Surgery
PROC: 8E0W4CZ Robotic Assisted Procedure of Trunk Region, Percutaneous Endoscopic Approach (ICD-10-PCS; 2025-08-14)
PROC: 3E03329 Introduction of Other Anti-infective into Peripheral Vein, Percutaneous Approach (ICD-10-PCS; 2025-08-14)
PROC: 0DTP4ZZ Resection of Rectum, Percutaneous Endoscopic Approach (ICD-10-PCS; principal; 2025-08-14 13:30)
DX: K56.690 Other partial intestinal obstruction (principal); I50.32 Chronic diastolic (congestive) heart failure; J44.89 Other specified chronic obstructive pulmonary disease; K21.9 Gastro-esophageal reflux disease without esophagitis; I11.0 Hypertensive heart disease with heart failure; E78.5 Hyperlipidemia, unspecified; I48.0 Paroxysmal atrial fibrillation; I08.1 Rheumatic disorders of both mitral and tricuspid valves; E66.9 Obesity, unspecified; Z98.891 History of uterine scar from previous surgery; Z87.19 Personal history of other diseases of the digestive system; Z98.890 Other specified postprocedural states; Z87.891 Personal history of nicotine dependence; Z88.5 Allergy status to narcotic agent; Z88.8 Allergy status to other drugs, medicaments and biological substances; Z88.2 Allergy status to sulfonamides; Z79.899 Other long term (current) drug therapy; Z79.01 Long term (current) use of anticoagulants; Z23 Encounter for immunization
CPT/HCPCS: 36415; 71250; 80048; 80069; 82378; 83735; 85025; 85027; 88305; 88309; 93005; 93010; 93308; 93321; 94640; 94664; 94760; 96374; 97110; 97116; 97162; 97165; 97530; 97535; A9270; G0378; G0379; J0690; J0780; J1100; J1171; J1650; J2371; J2405; J2704; J3010; J3480; J7050; J7060; J7120